=== PATIENT | female | born 1940 | race Two or more races ===

== ENCOUNTER → 2017-06-15 | Outpatient (CLI) | payer OTHER | LOC: CIMAGING 15:56 | PROVIDERS: ATTEND Internal Medicine | DX: J90 Pleural effusion, not elsewhere classified (principal); I25.10 Atherosclerotic heart disease of native coronary artery without angina pectoris; I11.0 Hypertensive heart disease with heart failure; I50.9 Heart failure, unspecified | CPT/HCPCS: 71046-PO ==

== ENCOUNTER 2018-03-11 09:03 | Observation (INO) | payer OTHER ==
--- NOTE | 2018-03-11 09:27 | EDPHY ---
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 She complains increased fatigue and shortness of breath with exertion over the last week or 2. No fever. No cough. Her daughter reports that she was recently prescribed oxygen at home but the machine has not come yet. She was admitted to the hospital 2 years ago with similar symptoms and started on Lasix and advised to decrease her salt and water and salt intake. She had a negative workup for PE at that time. Today she presented to her primary with these concerns and they recommended she come to the ER to have "blood clot ruled out". She denies leg pain or swelling today. Severity: Moderate Modifying factors: Improves with rest, worse with exertion REVIEW OF SYSTEMS: Constitutional: denies: chills, fever, recent illness, recent injury EENTM: denies: blurred vision, double vision, nose congestion Respiratory: See HPI Cardiac: denies: chest pain, irregular heart rate, lightheadedness, palpitations Gastrointestinal/Abdominal: denies: abdominal pain, diarrhea, nausea, vomiting, blood streaked stools Genitourinary: denies: dysuria, frequency, hematuria, pain Musculoskeletal: denies: joint pain, muscle pain Skin: denies: lesions, rash, jaundice, bruising Neurological: denies: headache, numbness, paresthesia, tingling, dizziness, weakness Hematologic/Lymphatic: denies: blood clots, easy bleeding, easy bruising Immunologic/allergic: denies: HIV/AIDS, transplant 10 systems reviewed and negative except as noted EXAM: GENERAL: Well-appearing, well-nourished and in no acute distress. HEAD: Atraumatic, normocephalic. EYES: Pupils equal round and reactive to light, extraocular movements intact, sclera anicteric, conjunctiva are normal. ENT: TMs normal, nares patent, oropharynx clear without exudates. Moist mucous membranes. NECK: Normal range of motion, supple without lymphadenopathy or JVD. LUNGS: Breath sounds clear to auscultation bilaterally and equal. No wheezes rales or rhonchi. HEART: Regular rate and rhythm without murmurs, rubs or gallops. ABDOMEN: Soft, nontender, normoactive bowel sounds. No guarding, no rebound. No masses appreciated. BACK: No CVA tenderness, no spinal tenderness, step-offs or deformities EXTREMITIES: Normal range of motion, very slight bilateral edema. No clubbing or cyanosis. NEUROLOGICAL: Cranial nerves II through XII grossly intact. Normal speech, normal gait. 5/5 strength, normal movement in all extremities, normal sensation , normal reflexes PSYCH: Normal mood, normal affect. SKIN: Warm, dry, normal turgor, no visible rashes or lesions. Source: Patient, Family, Old records Exam Limitations: No limitations - Medical/Surgical History Hx Asthma: No Hx Chronic Respiratory Disease: No Hx Diabetes: Yes Hx Cardiac Disease: Yes Hx Renal Disease: No Hx Cirrhosis: No Hx Alcoholism: No Hx HIV/AIDS: No Hx Splenectomy or Spleen Trauma: No Other PMH: Right-sided CHF, Aortic stenosis, hypertension, diabetes. - Family History Significant Family History: No pertinent family hx - Social History Smoking Status: Never smoked Alcohol Use: Sober Drug Use: None Constitutional: Initial Vital Signs Temperature (C) 36.5 C 03/11/18 09:09 Heart Rate 92 03/11/18 09:09 Respiratory Rate 20 03/11/18 09:09 Blood Pressure 137/81 H 03/11/18 09:09 O2 Sat (%) 87 L 03/11/18 09:09 O2 Delivery Mode Room Air O2 (L/minute) 2 Allergies/Adverse Reactions: No Known Allergies Allergy (Verified 03/11/18 09:09) Home Medications: Medication Instructions Recorded Aspirin [Aspirin 81mg (*)] 81 mg PO DAILY 05/24/13 Carvedilol [Coreg (*)] 6.25 mg PO BIDMEAL 03/11/18 Furosemide [Lasix 40 MG (*)] 40 mg PO DAILY 03/11/18 Sertraline HCl [Zoloft 100mg (*)] 100 mg PO DAILY 03/11/18 Medical Decision Making - Diagnostics EKG Interpretation: An EKG obtained and was read and documented in trace view. Please see trace view for full reading and report. Third-degree heart block, ventricular rate of 86 Imaging Results: Imaging Impressions Chest X-Ray 03/11/18 09:23 Impression: 1. New moderate right pleural effusion resulting in right basilar compressive atelectasis. 2. Cardiomegaly. No failure. Imaging: Discussed imaging studies w/ psychiatric secretary Radiologist ED Course/Re-evaluation: 10:20 am. We discussed the x-ray, EKG and lab results thus far. I feel that the pleural effusion is likely what is causing the patient's mild shortness of breath exertion. Her D-dimer is elevated however I think this is less likely to be the cause then the effusion. I will admit at this time and recommend paracentesis. Also the patient's EKG appears to be consistent with a third- degree heart block. It is somewhat difficult to tell because some of the P waves are. In P-waves however they do seem to be dysconjugate. Will consult Cardiology as well. 10:30 a.m. I discussed the case with hospital service who accepted to Dr. Goldsmith. Also discussed the case with Haley from Cardiology will consult. Differential Diagnosis: Partial list of the Differential diagnosis considered include but were not limited to; CHF, pleural effusion, pulmonary embolism, arrhythmia and although unlikely based on the history and physical exam, I also considered infection, dissection. Critical Care Time: Critical care time spent by me, Dr. Mobley exclusive with this patient was 35 minutes, exclusive of the PA time exclusive of procedures. The organ system that was at risk was cardiovascular and I gave diagnostics, consultation and admission to prevent worsening of the patient's condition - Data Points Laboratory Results: Laboratory Results 03/11/18 09:40 03/11/18 03/11/18 03/11/18 09:51 09:50 09:40 WBC 3.40 10^3/uL L 10^3/uL (3.80-9.50) RBC 4.31 10^6/uL 10^6/uL (4.18-5.33) Hgb 12.5 g/dL L g/dL (12.6-16.3) Hct 38.5 % % (38.0-47.0) MCV 89.3 fL fL (81.5-99.8) MCH 29.0 pg pg (27.9-34.1) MCHC 32.5 g/dL g/dL (32.4-36.7) RDW 16.7 % H % (11.5-15.2) Plt Count 59 10^3/uL L 10^3/uL (150-400) MPV 11.1 fL fL (8.7-11.7) Neut % (Auto) 58.5 % % (39.3-74.2) Lymph % (Auto) 26.5 % % (15.0-45.0) Colbert % (Auto) 9.7 % % (4.5-13.0) Eos % (Auto) 4.1 % % (0.6-7.6) Baso % (Auto) 0.9 % % (0.3-1.7) Nucleat RBC Rel Count 0.0 % % (0.0-0.2) Absolute Neuts (auto) 1.99 10^3/uL 10^3/uL (1.70-6.50) Absolute Lymphs (auto) 0.90 10^3/uL L 10^3/uL (1.00-3.00) Absolute Monos (auto) 0.33 10^3/uL 10^3/uL (0.30-0.80) Absolute Eos (auto) 0.14 10^3/uL 10^3/uL (0.03-0.40) Absolute Basos (auto) 0.03 10^3/uL 10^3/uL (0.02-0.10) Absolute Nucleated RBC 0.00 10^3/uL 10^3/uL (0-0.01) Immature Gran % 0.3 % % (0.0-1.1) Immature Gran # 0.01 10^3/uL 10^3/uL (0.00-0.10) RBC/WBC/PLT Morphology TNP Platelet Estimate TNP POC Sodium 144 mEq/L mEq/L (135-145) POC Potassium 3.3 mEq/L mEq/L (3.3-5.0) POC Chloride 106.0 mEq/L mEq/L (97-110) POC Total CO2 29 mEq/L mEq/L (22-31) POC BUN 23 mg/dL mg/dL (7-23) POC Creatinine 1.2 mg/dL H mg/dL (0.6-1.0) POC Glucose 97 mg/dL mg/dL (70-100) POC Calcium 8.9 mg/dL mg/dL (8.5-10.4) POC Total Bilirubin 1.2 mg/dL mg/dL (0.1-1.4) POC AST 42 IU/L IU/L (14-46) POC ALT 17 IU/L IU/L (9-52) POC Alk Phosphatase 104 IU/L IU/L (38-126) POC Troponin I 0.02 ng/mL ng/mL (0.00-0.08) POC Total Protein 7.9 g/dL g/dL (6.3-8.2) POC Albumin 3.6 g/dL g/dL (3.5-5.0) Point of Care Test Results: Chemistry 03/11/18 03/11/18 09:51 09:50 POC Sodium 144 mEq/L mEq/L (135-145) POC Potassium 3.3 mEq/L mEq/L (3.3-5.0) POC Chloride 106.0 mEq/L mEq/L (97-110) POC Total CO2 29 mEq/L mEq/L (22-31) POC BUN 23 mg/dL mg/dL (7-23) POC Creatinine 1.2 mg/dL H mg/dL (0.6-1.0) POC Glucose 97 mg/dL mg/dL (70-100) POC Calcium 8.9 mg/dL mg/dL (8.5-10.4) POC Total Bilirubin 1.2 mg/dL mg/dL (0.1-1.4) POC AST 42 IU/L IU/L (14-46) POC ALT 17 IU/L IU/L (9-52) POC Alk Phosphatase 104 IU/L IU/L (38-126) POC Troponin I 0.02 ng/mL ng/mL (0.00-0.08) POC Total Protein 7.9 g/dL g/dL (6.3-8.2) POC Albumin 3.6 g/dL g/dL (3.5-5.0) D-Dimer D-Dimer Collection Date 03/11/18 D-Dimer Collection Time 09:40 D-Dimer (ng/ml) 2330 Departure - Departure Disposition: [facility] Inpatient Acute Clinical Impression: Pleural effusion, Third degree heart block by electrocardiogram Condition: Fair
--- NOTE | 2018-03-11 10:21 | CPEKG ---
Test Reason : OPEN Blood Pressure : / mmHG Vent. Rate : 086 BPM Atrial Rate : 183 BPM P-R Int : 193 ms QRS Dur : 117 ms QT Int : 427 ms P-R-T Axes : 000 -68 044 degrees QTc Int : 511 ms Incomplete left bund c Q waves, possibly due to LVH Confirmed by Enrique Mobley ([id number]) on 03/11/2018 10:20:17 AM Referred By: Confirmed By:Enrique Mobley
[2018-03-11 10:24] LABS: PLATELET COUNT 59 10^3/uL (150-400)
--- NOTE | 2018-03-11 14:11 | GCON ---
CARDIAC CONSULTATION DATE OF CONSULTATION: 03/11/2018 CHIEF COMPLAINT: Shortness of breath and arrhythmias. HISTORY OF PRESENT ILLNESS: This is a very pleasant 77-year-old female who is seen on the telemetry unit. She has a cardiac history dating back to 2013, when she had an aortic valve replacement and co ronary bypass grafting. She is followed by Dr. Langley in our office. She was last seen in January of this year. Apparently, there was some confusion with her medications, but at that time was strai ghtened out and she was only taking carvedilol 6.25 mg p.o. b.i.d. A week or so ago, she had a fever and cough and just becoming more short of breath. She apparently had Lasix given to her by her PCP earlier this week. Today, she came the emergency room where an EKG shows normal sinus rhythm with first-degree AV block. There was some mention of possibly some other arrhythmias, but I do not see any rhythm strips. She had a chest x-ray that showed a moderate right pleural effusion. She was admitted for further care and observation. She is now feeling better. Her labs, white count of 3, hemoglobin of 12. Creatinine is 1.2. Troponin is 0.02. Normal LFTs. In speaking to her, she has been fully active. Her only complaints were of the recent fevers, cough, and shortness of breath. She denies chest pain, palpitations, or syncope. She had an echocardiogra m last June in our office, which showed normal function of her aortic valve replacement and moder [id number] TR. EKG showed normal sinus rhythm. PAST MEDICAL HISTORY: Includes cardiac as noted above, history of colonic polyps, and hysterectomy. REVIEW OF SYSTEMS: Negative 10-point review of systems. FAMILY HISTORY: Noncontributory. SOCIAL HISTORY: She lives by herself with close family support. Her daughter is here with her today . ALLERGIES: She has no known allergies. MEDS: Include carvedilol, aspirin, and vitamins. EXAM: VITAL SIGNS: Blood pressure is 150/80, heart rate is in the 90s and sinus. GENERAL: She is an elderly female in no acute distress. HEENT: Mouth and oropharynx were moist. NECK: Supple. No JVP. LUNGS: Dull right base with inspiration. No wheezing. CARDIOVASCULAR: Regular rate and rhy thm with a systolic murmur. ABDOMEN: Soft, nontender. MUSCULOSKELETAL: No cyanosis, clubbing, or edema. ASSESSMENT: Shortness of breath with right pleural effusion. This may in fact be infectious as she did have a fever and cough last week. Her cardiac enzymes are normal at this time. There are no spe cific arrhythmias or other syncope or ACS symptomatology. She has no PND, orthopnea, or pedal edema at this point. PLAN: 1. 2D echo. 2. Assess her pulmonary pressures and valve function. 3. Continue beta zenon at this time. 4. Low dosed Lasix can be tried as needed. 5. Possible infectious workup or thoracentesis if needed. Case discussed with Dr. Goldsmith. I will continue to follow the patient. At this point, she has no sig nificant arrhythmias, but will continue to follow on telemetry. /[id number]/MODL
[2018-03-11] MEDS ORDERED: ACETAMINOPHEN 325 MG TAB PO PRN (14:43)
[2018-03-11] MEDS ORDERED: ONDANSETRON 4 MG/2 ML VIAL IVP PRN (14:43)
[2018-03-11] MEDS ORDERED: LIDOCAINE 1% 300 MG/30 ML SDV ONE (15:04)
[2018-03-11 15:13] LABS: INR 1.38 (0.83-1.16); PROTIME(PATIENT) 17.1 SEC (12.0-15.0)
--- NOTE | 2018-03-11 16:03 | GHP ---
DATE OF ADMISSION: 03/11/2018 CHIEF COMPLAINT: Shortness of breath. HISTORY: Ashlye is a 77-year-old female who has noted shortness of breath for the last 2 weeks. Thi s is most noticeable when she is walking around. She has developed severe dyspnea on exertion. With activity, she normally is able to tolerate it without difficulty. 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 She is having so much fatigue she is having trouble getting through her workday. She denie s any chest pain or lower extremity edema. She started to feel better when she would wear her daught er's oxygen at night. PAST MEDICAL HISTORY: 1. Right heart failure. 2. Hypertension. 3. Aortic valve replacement. 4. Coronary artery disease, status post CABG in 2013. 5. Borderline diabetes. MEDICATIONS: Please see computer record for a full detailed list. ALLERGIES: No known drug allergies. SOCIAL HISTORY: No smoking. No alcohol. She lives with her daughter and her 3 grandchildren. REVIEW OF SYSTEMS: Complete review of systems obtained. Review of systems is negative for constitut ional, HEENT, GI, pulmonary, vascular, , hematology, skin, musculoskeletal, endocrine, psychiatric, except for positives/negatives as noted in HPI. FAMILY HISTORY: Reviewed, noncontributory to presenting complaint. PHYSICAL EXAMINATION: GENERAL: Well-developed, well-nourished female in no acute distress. VITAL S IGNS: Temperature is 36.5, pulse 92, blood pressure 137/81, saturating 87% on room air. EYES: Norm al conjunctivae. Pupils equal and react to light. ENT: Normal ears, nose. Hearing intact. Normal teeth. Oropharynx moist. NECK: Trachea midline. No thyromegaly. CHEST: Normal respiratory effor t. LUNGS: Decreased breath sounds, right base. CARDIOVASCULAR: Regular rate and rhythm. No murmur . No extremity edema. ABDOMEN: Soft, nontender. No hepatosplenomegaly. SKIN: Warm, dry, intact. No rash. MUSCULOSKELETAL: No cyanosis or clubbing. Strength 5/5, upper and lower extremities. N EUROLOGIC: Cranial nerves intact. Normal sensation to light touch. PSYCHIATRIC: Alert, oriented x3 . Normal mood and affect. Normal judgment. Normal memory. LABORATORIES: White count 3.4, hematocrit 38.5, platelets 59. Sodium 144, potassium 3.3, chloride 1 06, bicarb 29, BUN 23, creatinine 1.2, glucose 97. Troponin is negative. EKG is viewed by me. My personal interpretation is Wenckebach rhythm, with LVH. Chest x-ray shows a large right pleural effusion. This case was discussed with Dr. Dewey Styles regarding cardiac arrhythmia. ASSESSMENT AND PLAN: 1. Large right pleural effusion: We will check a CT angiogram of the chest to rule out pulmonary em bolus. She will require thoracentesis, both therapeutic and diagnostic. Will send full fluid studie s, including cytology. 2. History of right heart failure: She is on daily Lasix, which will be continued. Repeat echocard iogram is ordered. 3. Coronary artery disease: Status post CABG in 2013. I see nothing to suggest acute ischemia at t his time. 4. Wenckebach heart block: Cardiology is seeing her in consultation, although I suspect this is a b enign rhythm. We will watch on telemetry. 5. Thrombocytopenia: This is chronic. We will hold her aspirin. 6. Deep venous thrombosis prophylaxis: She is high risk. Will place her on subcu Lovenox. CODE STATUS: Full. ADMISSION STATUS: Will admit to observation. Reevaluate tomorrow regarding ongoing need for hospita lization. /[id number]/MODL
--- NOTE | 2018-03-11 16:04 | ECHO ---
[email or web address] [address] [address] Main: [phone] Fax: Transthoracic Echocardiogram Name: SULLY HERNANDEZ MR#: [id number] Study Date: 03/11/2018 Study Time: 02:08 PM Date of : 1940 Age: 77 year(s) Height: 165.1 cm (65 in.) Weight: 67.13 kg (148 lb.) BSA: 1.74 m2 Gender: Female Examination: Echo Indication: Hx of AVR, SOB Pleural Effusion Image Quality: Contrast: Requested by: Dewey Styles BP: 154 mmHg/87 mmHg Heart Rate: Rhythm: Indication: Hx of AVR, SOB Pleural Effusion Procedure Staff Marketing Communications Coordinator: René Jewell RDCS Reading Physician: Dewey Styles MD Requesting Provider: Conclusions: Normal global systolic LV function. EF is 76 %. No regional wall motion abnormality. Moderately dilated right ventricle. The right atrium is severely dilated. Moderate mitral valve leaflet calcification is present. Mild to moderate mitral regurgitation. Aortic valve prosthesis is normal. The prosthetic aortic valve is normal. No prosthesis stenosis. No prosthesis regurgitation. The aortic valve mean gradient is 13 mmHg.. Moderate to severe tricuspid valve regurgitation. The pulmonary pressures are 72mmHg. Measurements: Chambers Valvular Assessment AV/MV Valvular Assessment TV/PV Normal Normal Normal Name Value Range Name Value Range Name Value Range IVSd (2D): 1.0 cm (0.6 cm-1.1 AV Vmax: 2.25 m/s (1 m/s-1.7 TR PGmax: 62 mmHg ( - ) cm) m/s) syst. PAP: 72 mmHg ( - ) LVDd (2D): 4.0 cm (3.9 cm-5.3 AV maxP mmHg ( - ) cm) AV meanP mmHg ( - ) LVDs (2D): 2.2 cm (2.1 cm-4 LVOT Vmax: 0.60 m/s (0.7 m/s-1.1 cm) m/s) LVPWd (2D): 1.1 cm ( - ) JERMAN (Vmax): 0.8 cm2 ( - ) LVOTd 2.0 cm 2.0 cm mm JERMAN (VTI): 1.0 cm ( - ) LVEF (2D): 76 (>=54 %) MV meanP mmHg ( - ) RVDd(2D): 3.8 cm (1.9 cm-3.8 MVA (Vmax): 1.6 m/s ( - ) cmmm) Patient: SULLY HERNANDEZ Study Date: 03/11/2018 Page 1 of 2 02:08 PM Continued Measurements: Chambers Valvular Assessment AV/MV Valvular Assessment TV/PV Name Value Name Value Name Value LADs Lon.4 cm MV E' Septal: 0.05 m/s CVP (est.): 10 mmHg LA Area: 22.6 cm2 MV VTI: 29.40 cm LA Volume: 73 ml LA Volume Index: 42.0 ml/m2 RA Area: 31.7 cm2 Findings: Left Ventricle: Normal size left ventricle. No LV hypertrophy. Normal global systolic LV function. EF is 76 %. No regional wall motion abnormality. Grade 2 diastolic dysfunction (pseudonormalized LV filling pattern). Right Ventricle: Moderately dilated right ventricle. Left Atrium: The left atrium is mildly to moderately dilated. Right Atrium: The right atrium is severely dilated. Mitral Valve: Moderate mitral valve leaflet calcification is present. Mild to moderate mitral regurgitation. Aortic Valve: Aortic valve prosthesis is normal. Normal functioning aortic valve prosthesis. The prosthetic aortic valve is normal. No prosthesis stenosis. No prosthesis regurgitation. The aortic valve mean gradient is 13 mmHg.. Tricuspid Valve: Moderate to severe tricuspid valve regurgitation. The pulmonary artery pressure is severely increased. The pulmonary pressures are 72mmHg. Pulmonic Valve: The pulmonic valve is normal in appearance and function. Aorta: The aorta is normal. Pericardium: No pericardial effusion. (No Signature Object) Patient: SULLY HERNANDEZ Study Date: 03/11/2018 Page 2 of 2 02:08 PM [id number]
[2018-03-11] MEDS ORDERED: IOPAMIDOL (ISOVUE 370) 100 ML BTL IV ONE (16:52)
[2018-03-11] MEDS: CARVEDILOL 6.25 MG TAB PO SCH (17:27)
[2018-03-12 04:17] LABS: PLATELET COUNT 55 10^3/uL (150-400)
[2018-03-12] MEDS ORDERED: SERTRALINE HCL 100 MG TAB PO SCH (09:00)
[2018-03-12] MEDS ORDERED: FUROSEMIDE 40 MG/4 ML VIAL IVP SCH (09:00)
[2018-03-12] MEDS ORDERED: ENOXAPARIN 40 MG/0.4 ML SYR SC SCH (09:00)
[2018-03-12] MEDS ORDERED: FUROSEMIDE 40 MG TAB PO SCH (09:00)
[2018-03-12] MEDS: CARVEDILOL 6.25 MG TAB PO SCH (10:39)
[2018-03-12] MEDS ORDERED: FUROSEMIDE 20 MG TAB PO SCH (10:45)
[2018-03-12 11:13] VITALS: BP 127/68
[2018-03-12] MEDS ORDERED: PNEUMOC 13-VAL CONJ-DIP CRM/PF 0.5 ML SYR IM ONE (11:23)
--- NOTE | 2018-03-12 11:51 | PDHOMEO2F ---
Home Oxygen Face to Face Home Orders: I certify that a physician or a nurse practitioner or physician's medical receptionist assistant has had a [id number] encounter with this patient on the date of this order due to the diagnosis listed, which relates to the primary reason the patient requires home oxygen. Alternative treatments have been tried, or considered, and deemed ineffective. It is anticipated that supplemental oxygen will result in improvement with treatment. Home oxygen qualifying diagnosis: CHF SpO2 on room air (%): 84 Frequency of home oxygen needed: continuous Home oxygen liters per minute: 2 Home oxygen delivery device: nasal cannula Concentrator: Yes E-tanks for mobility and back up: Yes If ordering portable O2, is the patient mobile in the home?: Yes I certify that, based on these findings, the home oxygen is medically necessary for this patient for the following length of time. Length of time home oxygen needed: 99 years
--- NOTE | 2018-03-12 12:09 | ASMTCMCOM ---
CM Note CM Note Notes: Pts case discussed in tx rounds. CM spoke to TE Mccauley regarding d/c POC. Pt does not need to be seen by therapies. Pt is independent. No other needs at this time. CM available for changes. Plan: Independent Date Signed: 03/12/2018 12:08 PM Electronically Signed By:CHAVA Andre
--- NOTE | 2018-03-12 12:09 | ASMTLACE ---
LACE Length of stay for Answers: 1 day current admission Acuity / Level of Answers: No Care: Did the patient have an inpatient admission? Comorbidities - select Answers: Congestive heart failure all that apply Coronary Artery Disease Diabetes (uncontrolled or controlled) Other Notes: HTN # of Emergency department Answers: 1-2 visits in the last 6 months Score: 8 Date Signed: 03/12/2018 12:09 PM Electronically Signed By:CHAVA Andre
--- NOTE | 2018-03-12 17:15 | GDS ---
DISCHARGE DIAGNOSES: 1. Large transudative pleural effusion. 2. Pulmonary hypertension. 3. Suspected sleep apnea. 4. Coronary artery disease status post coronary artery bypass graft. 5. Wenckebach heart block. 6. Chronic thrombocytopenia. HISTORY: This is a 77-year-old female who presents with 2 weeks of shortness of breath. Her chest x -ray showed a significant right-sided pleural effusion. CT angiogram of chest was negative for PE. She underwent thoracentesis, her effusion is essentially transudative. I suspect related to volume o verload. Cytology however remains pending at discharge and does need follow up. She felt much jane r after the thoracentesis. She does still require a little bit of oxygen and home oxygen was arrange d at discharge. Echocardiogram shows significant pulmonary hypertension which has already been diagn osed in the past. She has an outpatient sleep study scheduled within 1 month. She will follow up cl david with her electrical construction project manager, Dr. Langley. DISCHARGE MEDICATIONS: Please see computerized record for full detailed list. New medications: Lasi x 20 mg p.o. daily. ADDITIONAL DISCHARGE INSTRUCTIONS: 1. Followup appointment already scheduled with Dr. Langley. Recommend follow up renal function at pete t time. 2. Follow up cytology with primary care on the pleural effusion. 3. Follow up outpatient sleep study as already scheduled. 4. Greater than 30 minutes' time spent arranging this discharge. Patient was seen and examined by me on the day of discharge. /[id number]/MODL
[2018-03-13] MEDS ORDERED: ENOXAPARIN 40 MG/0.4 ML SYR SC SCH (09:00)
== END 2018-03-12 14:25 | disposition home or self-care (01) ==
LOC: CED 09:03 → CEDHOLD 10:51 → F2W 13:05
PROVIDERS: ADMIT Internal Medicine; ATTEND Internal Medicine
PROC: 0W993ZZ Drainage of Right Pleural Cavity, Percutaneous Approach (ICD-10-PCS; principal; 2018-03-11)
DX: J90 Pleural effusion, not elsewhere classified (principal); I27.20 Pulmonary hypertension, unspecified; I25.10 Atherosclerotic heart disease of native coronary artery without angina pectoris; I44.1 Atrioventricular block, second degree; D69.6 Thrombocytopenia, unspecified; R73.03 Prediabetes; Z95.1 Presence of aortocoronary bypass graft; Z95.2 Presence of prosthetic heart valve
CPT/HCPCS: 32555; 71045; 71046; 71275; 90670; 93005; 93306; 97161; 97166; G0009; G0378; G8978; G8979; G8987; G8988; J1940; Q9967; 80053-PO; 84484-PO

== ENCOUNTER → 2018-03-16 | Outpatient (CLI) | payer OTHER | LOC: CIMAGING 14:38 | PROVIDERS: ATTEND Internal Medicine Cardiovascular Disease | DX: J90 Pleural effusion, not elsewhere classified (principal); I51.7 Cardiomegaly | CPT/HCPCS: 71046-PO ==

== ENCOUNTER → 2018-05-11 | Outpatient (CLI) | payer OTHER | LOC: SBRMNEURO 21:00 | PROVIDERS: ATTEND Physician Assistant Medical | DX: G47.33 Obstructive sleep apnea (adult) (pediatric) (principal); G47.36 Sleep related hypoventilation in conditions classified elsewhere ==

== ENCOUNTER → 2018-05-24 | Outpatient (CLI) | payer OTHER | LOC: CIMAGING 10:19 | PROVIDERS: ATTEND Internal Medicine | DX: I50.30 Unspecified diastolic (congestive) heart failure (principal); R09.02 Hypoxemia | CPT/HCPCS: 71046-PO ==

== ENCOUNTER → 2018-05-31 | Outpatient (CLI) | payer OTHER ==
[~2018-05-31] MED LIST: LIDOCAINE 1% 300 MG/30 ML SDV ONE
== END ==
LOC: FIMAGING 14:32
PROVIDERS: ATTEND Internal Medicine
DX: I50.30 Unspecified diastolic (congestive) heart failure (principal); J90 Pleural effusion, not elsewhere classified; I25.10 Atherosclerotic heart disease of native coronary artery without angina pectoris

== ENCOUNTER → 2018-06-15 | Outpatient (CLI) | payer OTHER | LOC: CIMAGING 14:23 | PROVIDERS: ATTEND Internal Medicine Cardiovascular Disease | DX: J90 Pleural effusion, not elsewhere classified (principal); I11.0 Hypertensive heart disease with heart failure; I50.9 Heart failure, unspecified; E78.5 Hyperlipidemia, unspecified | CPT/HCPCS: 71046-PO ==

== ENCOUNTER → 2018-07-06 | Outpatient (CLI) | payer OTHER | LOC: FIMAGING 07:15 | PROVIDERS: ATTEND Internal Medicine | PROC: 0W993ZZ Drainage of Right Pleural Cavity, Percutaneous Approach (ICD-10-PCS; principal; 2018-07-06) | DX: J90 Pleural effusion, not elsewhere classified (principal) ==